=== PATIENT | male | born 1960 | race Two or more races ===

== ENCOUNTER 2024-03-11 11:36 | Emergency (ER) | payer OTHER ==
[~2024-03-11] VITALS: Ht 182.9 cm; Wt 90.7 kg
== END 2024-03-11 16:06 | disposition home or self-care (01) ==
LOC: ER 11:37
DX: B34.9 Viral infection, unspecified (principal); Z20.822 Contact with and (suspected) exposure to COVID-19; Z88.0 Allergy status to penicillin